=== PATIENT | female | born 1955 | race Caucasian/White ===

== ENCOUNTER → 2023-11-21 14:07 | Outpatient (RCR) | payer OTHER, SELFPAY ==
[2020-01-14 10:41] LABS: Eos%MD 10.6 %; Hematocrit 36.2 % (37-47); Hemoglobin 12.6 g/dl (12.0-16.0); IG%MD 0.3 %; Lymph%MD 36.5 %; Mean Corpuscular HGB Conc 34.8 g/dl (31.0-35.0); Mean Corpuscular Hemoglobin 32.9 pg (27.0-33.0); Mean Corpuscular Volume 94.5 fL (80-98); Mean Platelet Volume 8.5 fL (9.4-12.3); Mono%MD 8.3 %; Neut%MD 43.3 %; Platelet Count 248 X10*3/uL (160-400); Red Blood Count 3.83 X10*6/uL (4.20-5.50); Red Cell Distribution Width 11.8 % (11.0-16.0); White Blood Count 3.1 X10*3/uL (4.8-10.8)
[2020-01-14 11:01] LABS: Alanine Aminotransferase 39 U/L (0-31); Albumin Level 4.4 g/dL (3.5-5.0); Alkaline Phosphatase 105 U/L (39-117); Aspartate Amino Transferase 25 U/L (5-31); Blood Urea Nitrogen 12 mg/dL (9-16); Calcium 9.2 mg/dL (8.4-10.2); Estimated Glomerular Filt Rate > 60; Glucose Random 96 mg/dL (60-115); Total Protein 7.1 g/dL (6.5-8.0)
[2020-01-14 11:12] LABS: Anion Gap 15 (12-20); Carbon Dioxide 23 mmol/L (22-29); Chloride 93 mmol/L (96-108); Potassium 4.7 mmol/l (3.3-5.1); Sodium 126 mmol/L (135-145)
[2020-01-14 11:54] LABS: Band Neutrophils Percent 1 % (3-5); Basophils Percent Manual 1 % (0-1); Eosinophils Absolute Manual 0.3 X10*3/UL (0.0-0.8); Eosinophils Percent Manual 11 % (0-4); Lymphocytes Absolute Manual 1.1 X10*3/uL (0.6-4.8); Lymphocytes Percent Manual 36 % (20-40); Monocytes Absolute Manual 0.2 X10*3/uL (0.0-1.2); Monocytes Percent Manual 7 % (2-11); Neutrophils Absolute Manual 1.4 X10*3/uL (2.2-7.9); Neutrophils Percent Manual 44 % (45-73)
[2020-01-14 11:55] LABS: Platelet Estimate NORMAL (NORMAL); Platelet Morphology Comment NORMAL
[2020-01-14 11:56] LABS: RBC Morphology NORMAL
--- NOTE | 2020-01-20 10:04 | PM.HEMONCPN ---
Medical Summary - Medical Summary Chief complaint: F/U for Leucopenia. Medical Summary: DIAGNOSIS: NEUTROPENIA. CURRENT THERAPY: Observation. Interval History Interval history: This is a pleasant 64-year-old lady, here for a follow-up visit. She feels rather tired, other than that she is well. She tells me she had the pacemaker placed on September [address] Haddad. She has sick sinus syndrome with tachy-delma syndrome. The procedure went well. Overnight she had about 7% atrial pacing. She was sent home on increased dose of metoprolol 25 mg b.i.d. She resumed her Eliquis the following day. She is doing well now. She denies chest pain or trouble breathing nor palpitations. No headache no dizziness. She denies fever chills no night sweats. No abdominal pain nausea vomiting heartburn indigestion. Bowels are working without any gross blood in it. She enjoys a good appetite. She has gained weight. She is in good spirits. Rest of the review of systems is unremarkable. Home Medications and Allergies Home Medications Medication Instructions Recorded Confirmed Type celecoxib 1 cap PO DAILY 01/14/20 01/14/20 History citalopram 1 tab PO DAILY 01/14/20 01/14/20 History levothyroxine 1 tab PO QAM 01/14/20 01/14/20 History lorazepam 1 - 2 tab PO BID 01/14/20 01/14/20 History losartan 1 tab PO DAILY 01/14/20 01/14/20 History metoprolol succinate 1 tab PO BID 01/14/20 01/14/20 History promethazine 0.5 tab PO Q6H PRN 01/14/20 01/14/20 History zolpidem 1 tab PO BEDTIME 01/14/20 01/14/20 History bupropion HCl 1 tab PO QAM 01/15/20 01/15/20 History sertraline [Zoloft] 150 mg PO DAILY 01/15/20 01/15/20 History sodium chloride 1 tab PO DAILY 01/15/20 01/15/20 History Allergies Allergy/AdvReac Type Severity Reaction Status Date / Time hydrochlorothiazide Allergy Severe DECREASED Verified 01/20/20 09:58 [HYDROCHLOROTHIAZIDE] THYROID LEVELS/ LOW SODIUM, SIADH, low sodium level Data - Labs CBC & Chem 7: 01/14/20 09:52 01/14/20 09:52 Progress Note: A/P - Time Spent With Patient Total time spent is greater than 50% in coordination of care (as documented) at patient's floor/unit and/or counseling patient: 15 - 24 minutes
--- NOTE | 2020-01-20 10:07 | HO.HEMONCTE1 ---
[facility] Telehealth - Telehealth Patient Identification confirmed using: Name, : Yes Patient verbally consented to billing insurance company: Yes Patient informed of any privacy concerns related to visit: Yes Medical Summary - Medical Summary Chief complaint: F/U for Leucopenia. Medical Summary: DIAGNOSIS: NEUTROPENIA. CURRENT THERAPY: Observation. Interval History Interval history: This is a pleasant 64-year-old lady, with whom a tele visit was held. She feels rather tired, other than that she is well. She can tell when her sodium goes down since she feels nauseous. Her sodium level was 126 recently. She will be talking to her primary today for further suggestion. She denies chest pain or trouble breathing nor palpitations. No headache no dizziness. She denies fever chills no night sweats. No abdominal pain nausea vomiting heartburn indigestion. Bowels are working without any gross blood in it. She enjoys a good appetite. She has gained weight. She is in good spirits. Rest of the review of systems is unremarkable. Previous History: She tells me she had the pacemaker placed on September [address] Haddad. She has sick sinus syndrome with tachy-delma syndrome. The procedure went well. Overnight she had about 7% atrial pacing. She was sent home on increased dose of metoprolol 25 mg b.i.d. She resumed her Eliquis the following day. Review of Systems - Constitutional Reports system reviewed and no additional complaints, except as documented, Reports fatigue, Reports lack of energy, Denies night sweats, Denies poor appetite - Eyes Reports system reviewed and no additional complaints, except as documented - ENT Reports system reviewed and no additional complaints, except as documented, Reports hearing normal - Cardiovascular Reports system reviewed and no additional complaints, except as documented - Gastrointestinal Reports system reviewed and no additional complaints, except as documented, Reports nausea, Denies change in bowel habits - Genitourinary Reports no additional female genitourinary complaints - Musculoskeletal Reports system reviewed and no additional complaints, except as documented, Reports joint pain - Integumentary/Breasts Skin/Breast: Reports no additional skin complaints - Neurologic Reports system reviewed and no additional complaints, except as documented, Reports weakness - Psychiatric Reports system reviewed and no additional complaints, except as documented - Endocrine Reports no additional endocrine complaints - Hematologic/Lymphatic Reports system reviewed and no additional complaints, except as documented - Allergic/Immunologic Reports system reviewed and no additional complaints, except as documented Home Medications and Allergies Home Medications Medication Instructions Recorded Confirmed Type celecoxib 1 cap PO DAILY 01/14/20 01/14/20 History citalopram 1 tab PO DAILY 01/14/20 01/14/20 History levothyroxine 1 tab PO QAM 01/14/20 01/14/20 History lorazepam 1 - 2 tab PO BID 01/14/20 01/14/20 History losartan 1 tab PO DAILY 01/14/20 01/14/20 History metoprolol succinate 1 tab PO BID 01/14/20 01/14/20 History promethazine 0.5 tab PO Q6H PRN 01/14/20 01/14/20 History zolpidem 1 tab PO BEDTIME 01/14/20 01/14/20 History bupropion HCl 1 tab PO QAM 01/15/20 01/15/20 History sertraline [Zoloft] 150 mg PO DAILY 01/15/20 01/15/20 History sodium chloride 1 tab PO DAILY 01/15/20 01/15/20 History bupropion HCl 1 tab PO QAM 01/20/20 01/20/20 History trazodone 100 mg PO BEDTIME 01/20/20 01/20/20 History Allergies Allergy/AdvReac Type Severity Reaction Status Date / Time hydrochlorothiazide Allergy Severe DECREASED Verified 01/20/20 09:58 [HYDROCHLOROTHIAZIDE] THYROID LEVELS/ LOW SODIUM, SIADH, low sodium level Exam - Constitutional Present: no acute distress - Routine HEENT Exam Head: Present: normal inspection, normocephalic Data - Labs CBC & Chem 7: 01/14/20 09:52 01/14/20 09:52 Progress Note: A/P (1) Leucopenia Status: Acute Assessment and plan: This is a pleasant 64-year-old lady, history of atrial fibrillation, on Metoprolol and Eliquis. She had a pacemaker placed on September 08 for sick sinus, tachy-delma syndrome. She has been noted to have fluctuating WBC count. Back in April of last year her white count was 4.8. It then normalized. In August of last year it was 3. It was then normal till October 09 when it was 4. In February it was 4.3. Most recent WBC from January 13 was 3.1. It was 3.6 on September 08. August 21 was 4.8 and July 29 was 3.7. LEUKOPENIA: Differential diagnosis: 1. DRUG RELATED: 2. SECONDARY TO INFECTION: Chronic infections like hep B and C. 3. COLLAGEN VASCULAR DISORDER: RA, SLE. 4. B12 FOLATE DEFICIENCY. 5. UNDERLYING MYELO INFILTRATIVE DISORDER: MYELODYSPLASTIC SYNDROME VERSUS MULTIPLE MYELOMA. 6. BENIGN LEUKOPENIA/CYCLIC LEUKOPENIA. I proceeded with further workup. l checked a manual diff: SEGS August 21 BAND August 21 LYMPH August 21 MONOS August 21 EOS August 21 Checked Hep B and C profiles: These came back negative. Checked collagen vascular profile: ESR: 6, RA: Less than 50, TRINITY: Negative. Check B12 and folate levels. B12: 417. Folate: 5.1. Checked SIEP and LDH: 143. IgG 1098 IgA 162 IgM 95 IMFIXS INTERP No abnormal bands are present on immunofixation. Most likely she has Cyclic Neutropenia or Benign Leukopenia. She is clinically asymptomatic in that regard. No fever nor chills. No mouth sores nor frequent infectious problems. PLAN: At this point I will follow the trend of her white count, over time. If WBC declines to 2 or below, will proceed with a bone marrow exam for further evaluation. I asked her to return in 3 months for a follow-up. However she tells me she is moving back to [place]. She will call in case she gets any B symptoms prior to that time. All her questions were answered to her satisfaction. around 25 minutes were spent coordinating her care including the tele interview, review of labs, review of imaging and counseling the patient. Thank you, CC: Dr. Coby Phelps. Code Status FULL CODE - Time Spent With Patient Total time spent is greater than 50% in coordination of care (as documented) at patient's floor/unit and/or counseling patient: 15 - 24 minutes
--- NOTE | 2020-01-20 12:17 | MHC.HEMONC ---
Telehealth Exam, No follow up needed per patient she is moving to [place] and will establish care their.
== END | disposition home or self-care (01) ==
LOC: HO.ONC 01-14 09:21
PROVIDERS: PCP Family Medicine; Visit Provider Internal Medicine Medical Oncology
DX: D72.819 Decreased white blood cell count, unspecified (principal); I48.91 Unspecified atrial fibrillation; Z79.01 Long term (current) use of anticoagulants; Z79.899 Other long term (current) drug therapy
CPT/HCPCS: 36415; 80053; 85007; 85027